=== PATIENT | female | born 1955 | race Caucasian/White ===

== ENCOUNTER 2017-04-08 14:53 | Inpatient (IN) | payer MEDICARE ==
[~2017-04-08] VITALS: Ht 168.9 cm; Wt 81.5 kg
[2017-04-08 15:58] LABS: BASOPHILS 0.3 % (0-2); EOSINOPHILS 2.3 % (0-7); HEMATOCRIT 37.6 % (36.0-48.0); HEMOGLOBIN 12.8 g/dL (12-16); IMMATURE GRANULOCYTES 0.3 % (0-5); LYMPHOCYTES 25.4 % (15-50); MCH 29.2 pg (26.0-34.0); MCV 85.8 fL (80.0-100.0); MEAN PLATELET VOLUME 8.9 fL (7.4-10.4); MONOCYTES 11.9 % (2-11); NEUTROPHILS 59.8 % (40-80); RBC 4.38 10x6/uL (4.00-5.40); RDW 14.2 % (11.5-14.5); WBC 10.6 10x3/uL (4.8-10.8)
[2017-04-08 16:00] LABS: PLATELET COUNT 288 10x3/uL (130-400)
[2017-04-08 16:19] LABS: ALBUMIN 2.8 g/dL (3.4-5.0); ANION GAP 10.1 mmol/L (8-16); BILIRUBIN - TOTAL 0.34 mg/dL (0.2-1.3); CALCIUM 9.6 mg/dL (8.5-10.1); CARBON DIOXIDE 33.6 mmol/L (21.0-32.0); CREATININE - SERUM 1.2 mg/dL (0.6-1.3); POTASSIUM - SERUM 3.7 mmol/L (3.5-5.1); PROTEIN - SERUM 7.7 g/dL (6.4-8.2)
[2017-04-08 18:47] LABS: APTT 31.7 SECONDS (22.8-39.4); INR 0.92 (0.85-1.17); PROTIME 12.2 SECONDS (11.6-15.0)
[2017-04-08 19:00] VITALS: BP 163/87
--- NOTE | 2017-04-08 20:36 | NUR ---
RECEIVEDOM ER, IV-R.HAND, VITALS ARE STABLE, BED IS LOW, SRX-2 CALL LIGHT IN REACH. PT IS A&O, PT IS AMBULATE, DENIES ANY NEED, WILL CONTINUE TO MONITOR
[2017-04-08] MEDS ORDERED: KLONOPIN0.5 MG PO (20:39)
[2017-04-08] MEDS ORDERED: METOPROLOL TART50 MG PO (20:40)
[2017-04-08] MEDS ORDERED: LEVOTHYROXINE50 MCG PO (20:40)
[2017-04-08] MEDS ORDERED: HCTZ25 MG PO (20:40)
[2017-04-08] MEDS ORDERED: PEPCID20 MG PO (20:41)
[2017-04-08] MEDS ORDERED: KEFLEX500 MG PO (20:42)
[2017-04-08] MEDS ORDERED: ZYPREXA5 MG PO (20:43)
[2017-04-08] MEDS ORDERED: CYMBALTA60 MG PO (20:44)
[2017-04-08] MEDS ORDERED: ULTRAM50 MG PO (20:45)
[2017-04-08] MEDS ORDERED: DEPAKOTE500 MG PO (20:46)
--- NOTE | 2017-04-08 23:26 | NUR ---
PAGED DAT TO ASK ABOUT ZOSYN. PT ALERGY TO ZOSYN, ORDER CHANGED TO LEVOFLOXACIN
[2017-04-09] VITALS: BP 126/78
[2017-04-09 01:15] VITALS: BMI 26.7
[2017-04-09 04:00] VITALS: BP 121/56
[2017-04-09 06:15] LABS: HEMATOCRIT 34.3 % (36.0-48.0); HEMOGLOBIN 11.9 g/dL (12-16); LYMPHOCYTES 29.1 % (15-50); MCHC 34.7 g/dL (31.0-37.0); MEAN PLATELET VOLUME 8.4 fL (7.4-10.4); NEUTROPHILS 54.4 % (40-80); PLATELET COUNT 304 10x3/uL (130-400); RBC 4.11 10x6/uL (4.00-5.40); RDW 13.3 % (11.5-14.5); WBC 9.1 10x3/uL (4.8-10.8)
[2017-04-09 06:16] LABS: MCV 83.5 fL (80.0-100.0)
[2017-04-09 06:21] LABS: ANION GAP 9.2 mmol/L (8-16); C-REACTIVE PROTEIN 6.3 mg/dL (0.0-0.9); CALCIUM 8.6 mg/dL (8.5-10.1); CARBON DIOXIDE 30.8 mmol/L (21.0-32.0); CREATININE - SERUM 1.3 mg/dL (0.6-1.3)
--- NOTE | 2017-04-09 07:50 | NUR ---
AM ROUNDING- RECEIVED REPORT FROM OCCUPATIONAL HEALTH COORDINATOR NURSE BRAYAN. PT IS CURRENTLY LAYING IN BED ON RIGHT SIDE WITH EYES CLOSED RESTING. ON ROOM AIR. NO MONITOR. IV SEEN TO RIGHT HAND WITH NS RUNNING AT 75CC. NO NEED AT CURRENT TIME. WILL CONTINUE TO MONITOR AND CONTINUE WITH PLAN OF CARE.
[2017-04-09 08:52] VITALS: BP 143/69
--- NOTE | 2017-04-09 09:33 | NUR ---
AAMIR MARCUM (WOUND CARE NURSE) IN ROOM N0W GETTING WOUND CULTURE FOR RIGHT BIG TOE ABCESS.
--- NOTE | 2017-04-09 09:43 | NUR ---
Wound Care: Cultures obtained from wound on right great toe. Toe is edematous, red and tender to touch. There is moderate seropurulent drainage noted. Wound measures 0.3cm x 0.3cm x 0.5cm. Wound care will monitor.
[2017-04-09 13:11] VITALS: BP 129/74
--- NOTE | 2017-04-09 14:03 | NUR ---
D/C INSTRUCTIONS EXPLAINED TO PT. D/C PAPERWORK SIGNED BY PT AND PLACED IN CHART. IV TO LEFT FOREARM REMOVED WITH CATH TIP INTACT. COVERED SITE WITH 2X2 GAUZE PADS AND SECURED WITH TEGADERM. TOLERATED WELL. PT INSTRUCTED TO LET STAFF KNOW WHEN DAD GETS HERE TO GET PT SO STAFF MEMBER CAN TAKE PT OUT IN WHEELCHAIR. PT AGREES. WILL CONTINUE TO MONITOR.
[2017-04-09 17:59] VITALS: BP 137/78
--- NOTE | 2017-04-09 17:59 | NUR ---
PT IS CURRENTLY LAYING IN BED ON BACK WITH EYES OPEN RESTING. PT IS REQUESTING HER DRESSING ON RIGHT FOOT (BIG TOE) TO BE REDONE BECAUSE "THE DOCTOR TOOK IT OFF". WILL ATTEMPT TO REDO DRESSING BEFORE SHIFT CHANGE AND CONTINUE TO MONITOR.
[2017-04-10] VITALS: BP 113/69
--- NOTE | 2017-04-10 01:50 | NUR ---
ASSESSMENT COMPLETE, IV-LFA-NS@ 75, PT IS ABLIB, R. GREAT TOE-RED AND SWOLLEN,DRAINING, DRESSING INTACT. BED IS LOW, SRX2, WILL CONTINUE PLAN OF CARE
--- NOTE | 2017-04-10 02:14 | NUR ---
IV RESTARTED, 20 G, DRESSING INTACT.
[2017-04-10 04:00] VITALS: BP 126/77
--- NOTE | 2017-04-10 06:08 | NUR ---
DRESSING CHANGE TO PT'S RT TOE, CLEAN WOUND WITH WOUND CLEANCER, COVER WITH KLEX, SECURE WITH TAPE.
--- NOTE | 2017-04-10 07:35 | NUR ---
PT IN BED RESTING WITH EYES CLOSED. NO DISTRESS NOTED. IV TO RIGHT FA @ KVO. DRESSING INTO TO RIGHT GREAT TOE. WILL CONT TO MONITOR.
--- NOTE | 2017-04-10 08:31 | NUR ---
RESTS IN BED EATING BRK. IV PATENT. CALL LIGHT IN REACH. WILL MONITOR NEEDS.
[2017-04-10 08:54] VITALS: BP 122/63
[2017-04-10 12:48] VITALS: BP 144/84
--- NOTE | 2017-04-10 18:19 | NUR ---
PT UP IN BED WATCHING TV. NO C/O VOICED AT THIS TIME. WILL MONITOR.
[2017-04-10 19:00] VITALS: BP 148/72
--- NOTE | 2017-04-10 19:30 | NUR ---
RECEIVED REPORT, PT VISITING WITH , IV-RFA-NS @75, R. GREAT TOE RED, BED IS LOW, SRX2, CALL LIGHT IN REACH, WILL CONTINUE PLAN OF CARE
[2017-04-11] VITALS (7 sets, daily range): BP systolic 115–148; BP diastolic 54–76
--- NOTE | 2017-04-11 01:34 | NUR ---
ASSESSMENT COMPLETE, SEE FLOWSHEET, PT SLEEPING, BED IS LOW, SRX2, CALL LIGHT IN REACH, WILL CONTINUE PLAN OF CARE
[2017-04-11 07:12] LABS: BASOPHILS 0.4 % (0-2); HEMATOCRIT 34.7 % (36.0-48.0); HEMOGLOBIN 11.7 g/dL (12-16); IMMATURE GRANULOCYTES 0.3 % (0-5); LYMPHOCYTES 29.6 % (15-50); MCH 28.7 pg (26.0-34.0); MCHC 33.7 g/dL (31.0-37.0); MCV 85.3 fL (80.0-100.0); MEAN PLATELET VOLUME 8.7 fL (7.4-10.4); MONOCYTES 13.4 % (2-11); NEUTROPHILS 51.3 % (40-80); PLATELET COUNT 271 10x3/uL (130-400); RBC 4.07 10x6/uL (4.00-5.40); WBC 9.8 10x3/uL (4.8-10.8)
--- NOTE | 2017-04-11 07:25 | NUR ---
PT IN BED RESTING WITH EYES CLOSED. IV TO RIGHT FA INTACT NS@ 75. NO DISTRESS NOTED. WILL CONT TO MONITOR.
[2017-04-11 07:29] LABS: ANION GAP 10.2 mmol/L (8-16); C-REACTIVE PROTEIN 2.7 mg/dL (0.0-0.9); CALCIUM 8.9 mg/dL (8.5-10.1); CREATININE - SERUM 1.1 mg/dL (0.6-1.3); POTASSIUM - SERUM 4.2 mmol/L (3.5-5.1)
--- NOTE | 2017-04-11 09:35 | NUR ---
IV PATENT. CALL LIGHT IN REACH. AVE NEEDS AT THIS TIME. WILL MONITOR.
--- NOTE | 2017-04-11 17:17 | NUR ---
PT SITTING UP IN BED EATING AND WATCHING TV. DENIES PAIN OR DISCOMFORT. WILL MONIOTR.
--- NOTE | 2017-04-11 19:44 | NUR ---
RESUMED CARE OF PT, LYING IN BED RESPIRATIONS EVEN AND UNLABORED ON ROOM AIR. RIGHT FOREARM INFUSING NS @ 75. NO NEEDS VOICED AT THIS TIME. CALL LIGHT IN REACH. SEE NURSE ASSESSMENT.
--- NOTE | 2017-04-12 02:47 | NUR ---
LYING IN BED WITH EYES CLOSED, CALL LIGHT IN REACH.
[2017-04-12 04:24] VITALS: BP 118/68
--- NOTE | 2017-04-12 06:18 | NUR ---
NO CHANGES FROM PREVIOUS ASSESSMENT, CALL LIGHT IN REACH. WILL CONTINUE TO MONITOR.
[2017-04-12 06:20] LABS: BASOPHILS 0.3 % (0-2); EOSINOPHILS 4.6 % (0-7); HEMATOCRIT 34.7 % (36.0-48.0); HEMOGLOBIN 11.8 g/dL (12-16); IMMATURE GRANULOCYTES 0.4 % (0-5); LYMPHOCYTES 30.7 % (15-50); MCV 85.3 fL (80.0-100.0); MEAN PLATELET VOLUME 8.8 fL (7.4-10.4); MONOCYTES 13.5 % (2-11); NEUTROPHILS 50.5 % (40-80); PLATELET COUNT 277 10x3/uL (130-400); RBC 4.07 10x6/uL (4.00-5.40); RDW 13.9 % (11.5-14.5); WBC 9.5 10x3/uL (4.8-10.8)
[2017-04-12 06:43] LABS: ANION GAP 11.5 mmol/L (8-16); CALCIUM 8.8 mg/dL (8.5-10.1); CARBON DIOXIDE 28.5 mmol/L (21.0-32.0); CREATININE - SERUM 1.1 mg/dL (0.6-1.3)
--- NOTE | 2017-04-12 07:37 | NUR ---
ASSESSMENT COMPLETED. ALERT, ORIENTED. RIGHT FA IV WITH NS AT 75. RIGHT BIG TOE RED AND SWOLLEN.SORE ON PAD OF TOE. DENIES ANY NEEDS. CALL LIGHT IN REACH WITH SR UP. WILL MONITOR
[2017-04-12 08:09] VITALS: BP 126/75
--- NOTE | 2017-04-12 08:40 | NUR ---
PT PLACED ON TEMPORARY CONTACT ISOLATION GROWING STAFF ISABEL IN WOUND
--- NOTE | 2017-04-12 11:01 | NUR ---
PT IS ON CONTACT ISOLATION
[2017-04-12 11:38] VITALS: BP 135/71
--- NOTE | 2017-04-12 12:46 | NUR ---
HOB UP FOR DIET. DENIES ANY NEEDS. CALL LIGHT IN REACH WITH SR UP
[2017-04-12 15:55] VITALS: BP 113/56
--- NOTE | 2017-04-12 17:54 | NUR ---
LYING QUIETLY WITH EYS CLOSED. IV INFUSING WELL. NO DISTRESS NOTED
[2017-04-12 19:46] VITALS: BP 125/67
--- NOTE | 2017-04-12 19:48 | NUR ---
RESUMED CARE OF PT, LYING IN BED RESPIRATIONS EVEN AND UNLABORED ON ROOM AIR. RIGHT FOREARM INFUSING NS @ 75. NO NEEDS VOICED AT THIS TIME. CALL LIGHT IN REACH. WILL CONTINUE TO MONITOR. SEE NURSE ASSESSMENT.
--- NOTE | 2017-04-12 22:12 | NUR ---
NIGHT MEDS GIVEN, CALL LIGHT IN REACH. WILL CONTINUE TO MONITOR.
[2017-04-12 23:38] VITALS: BP 118/58
--- NOTE | 2017-04-13 01:45 | NUR ---
LYING IN BED WITH EYES CLOSED, CALL LIGHT IN REACH. WILL CONTINUE TO MONITOR.
[2017-04-13 03:48] VITALS: BP 142/71
[2017-04-13 05:26] LABS: BASOPHILS 0.3 % (0-2); EOSINOPHILS 5.2 % (0-7); HEMATOCRIT 33.7 % (36.0-48.0); HEMOGLOBIN 11.2 g/dL (12-16); IMMATURE GRANULOCYTES 0.3 % (0-5); LYMPHOCYTES 31.6 % (15-50); MCH 28.4 pg (26.0-34.0); MCHC 33.2 g/dL (31.0-37.0); MCV 85.5 fL (80.0-100.0); MEAN PLATELET VOLUME 8.7 fL (7.4-10.4); MONOCYTES 15.3 % (2-11); NEUTROPHILS 47.3 % (40-80); PLATELET COUNT 248 10x3/uL (130-400); RBC 3.94 10x6/uL (4.00-5.40); WBC 9.4 10x3/uL (4.8-10.8)
[2017-04-13 05:43] LABS: ANION GAP 10.2 mmol/L (8-16); CARBON DIOXIDE 30.1 mmol/L (21.0-32.0); CREATININE - SERUM 1.1 mg/dL (0.6-1.3); POTASSIUM - SERUM 4.3 mmol/L (3.5-5.1)
--- NOTE | 2017-04-13 06:11 | NUR ---
NO CHANGES FROM PREVIOUS ASSESSMENT. CALL LIGHT IN REACH.
--- NOTE | 2017-04-13 07:37 | NUR ---
AM ROUNDING DONE WITH PATIENT REQUESTING CUP OF COFFEE, 3 CREAMERS AND 1 SWEET N LOW. GIVEN. IV OF NS INFUSING TO RIGHT FA AT 75 CC/HR. ON ROOM AIR. RIGHT GREAT TOE SEEN WITH SLIGHT REDNESS AND SMALL DRY HOLE TO UNDERSIDE OF TOE, NO DRAINAGE. PATIENT REPORTS THAT THIS IS BETTER THAN IT HAS BEEN. SLIGHT REDNESS SEEN ALSO TO LEFT GREAT TOE. PATIENT IS UP AD [place], WILL CPOC.
[2017-04-13 07:42] VITALS: BP 125/59
--- NOTE | 2017-04-13 10:56 | NUR ---
Wound Care reassessment: Right great toe wound has improved. The edema has decreased as has the redness. The depth is still 0.5cm and the periwound skin will soon start to peel. No odor and little to no drainage at this time. I continued with Maxorb AG to the wound bed and protected with 4x4. Wound care will continue to monitor.
[2017-04-13 12:05] VITALS: BP 142/67
[2017-04-13 15:40] VITALS: BP 134/65
--- NOTE | 2017-04-13 16:02 | NUR ---
PERMITS ARE SIGNED FOR I & D RIGHT GREAT TOE FOR TOMORROW PER DR TIRADO. PATIENT IS INSTRUCTED TO NPO PAST MIDNIGHT.
--- NOTE | 2017-04-13 17:21 | NUR ---
PLACED IN CONTACT ISOLATION PER DR RIVERO.
--- NOTE | 2017-04-13 19:50 | NUR ---
RECEIVED REPORT, WATCHING TV, DENIES ANY NEEDS, IV-RFA-NS@ 75, BED IS LOW, SRX2, CALL LIGHT IN REACH, WILL CONTINUE PLAN OF CARE
[2017-04-13 20:12] VITALS: BP 123/57
[2017-04-13 23:40] VITALS: BP 125/62
--- NOTE | 2017-04-14 00:50 | NUR ---
ASSESSMENT COMPLETE, SEE FLOWSHEET, PT IS NPO FOR I&D OF R. GREAT TOE IN AM, BED IS LOW, SRX2, CALL LIGHT IN REACH, WILL CONTINUE PLAN OF CARE
[2017-04-14 03:31] VITALS: BP 123/61
[2017-04-14 06:15] LABS: BASOPHILS 0.4 % (0-2); EOSINOPHILS 4.6 % (0-7); HEMATOCRIT 34.3 % (36.0-48.0); HEMOGLOBIN 11.5 g/dL (12-16); IMMATURE GRANULOCYTES 0.3 % (0-5); LYMPHOCYTES 32.7 % (15-50); MCH 28.7 pg (26.0-34.0); MCHC 33.5 g/dL (31.0-37.0); MCV 85.5 fL (80.0-100.0); MONOCYTES 12.5 % (2-11); NEUTROPHILS 49.5 % (40-80); PLATELET COUNT 271 10x3/uL (130-400); RBC 4.01 10x6/uL (4.00-5.40); RDW 14.1 % (11.5-14.5); WBC 9.4 10x3/uL (4.8-10.8)
[2017-04-14 06:32] LABS: ANION GAP 11.8 mmol/L (8-16); CALCIUM 8.8 mg/dL (8.5-10.1); CARBON DIOXIDE 26.2 mmol/L (21.0-32.0); CREATININE - SERUM 1.1 mg/dL (0.6-1.3)
--- NOTE | 2017-04-14 07:23 | NUR ---
AM ROUNDS- PT IN THE SHOWER AT THIS TIME. WILL CONTINUE TO MONITOR.
--- NOTE | 2017-04-14 07:57 | NUR ---
CALLED SURGERY TO SEE WHAT TIME PT IS GOING FOR I&D TODAY. SPOKE WITH ARMEN, HE STATED THAT PT IS NOT ON THE SCHEDULE AND IT'S THE FIRST TIME HE HEARD ABOUT PT HAVING PROCEDURE DONE TODAY. HE WILL FIND OUT WHEN SHE IS GOING.
[2017-04-14 08:31] VITALS: BP 133/62
--- NOTE | 2017-04-14 09:00 | NUR ---
MORNING MEDICATIONS ON HOLD SINCE PT IS NPO AT THIS TIME. WILL ADMINSTERED MEDS WHEN SHE IS BACK FROM PROCEDURE.
--- NOTE | 2017-04-14 12:04 | NUR ---
PRE- OP MEDS GIVEN AT THIS TIME, NAD NOTED, WILL CONTINUE TO MONITOR.
[2017-04-14 12:29] VITALS: BP 123/75
--- NOTE | 2017-04-14 12:46 | NUR ---
PT TRANSFERED TO OR FOR PROCEDURED, NAD NOTED.
--- NOTE | 2017-04-14 14:09 | NUR ---
Patient Name: LUCIA HUERTA Admission Status: ER Accout number: [id number] Admission Date: 04-08-2017 : 1955 Admission Diagnosis:CELLULITIS OF RIGHT TOE Attending: AKBAR Current LOS: 6 Anticipated DC Date: Planned Disposition: Primary Insurance: MEDICARE A & B Discharge Planning Comments: CM MET WITH PATIENTS SPOUSE, KRZYSZTOF HUERTA, SECONDARY TO PATIENT STILL BEING IN SURGERY, TO ASSESS DISCHARGE PLANNING/NEEDS. SPOUSE STATED THEY WISH TO RETURN HOME. STATED THE HOME ENVIRONMENT IS SAFE. HE STATED HE WOULD DRIVE HER HOME ([phone]) AT DISCHARGE. DENIES ANY NEEDS. DISCUSSED POSSIBILITY OF NEED FOR HOME HEALTH. AT THIS TIME HE SAID THAT HE DOESN'T FEEL THEY WILL NEED IT. HE SAID "MANDA KNOWS HOW TO DRESS WOUNDS". CM WILL CONTINUE TO FOLLOW AND ASSIST NEEDED WITH DISCHARGE PLANNING/NEEDS. Clinical Information Systems Director: Latia Sun Is the patient Alert and Oriented? Yes * How many steps to enter\\exit or inside your home? 0 * PCP DR MICHAEL ROMAN * Pharmacy [facility] IN [place], [place] * Preadmission Environment Home with Family * ADLs Independent * Equipment Rolling Walker * List name and contact numbers for known caregivers / representatives who currently or will assist patient after discharge: KRZYSZTOF HUERTA, SPOUSE, * Community resources currently utilized None * Additional services required to return to the preadmission environment? No * Can the patient safely return to the preadmission environment? Yes * Has this patient been hospitalized within the prior 30 days at any hospital? No
--- NOTE | 2017-04-14 14:15 | NUR ---
PT TRANSFERED BACK TO ROOM 2137, NAD NOTED, PT AWAKE WITH NO C/O PAIN. WANTS LUNCH, HOOKED UP TO VITAL MACHINE, VITAL SIGNS STABLE. MEDS GIVEN EXCEPT BP MEDS SINCE BP IS ON THE LOWER SIDE. APPAREL DESIGNER AT BEDSIDE TO DRAW BLOOD. PT DENIES ANY OTHER NEEDS AT THIS TIME. CALL LIGHT IN REACH, NAD NOTED, WILL CONTINUE TO MONITOR.
[2017-04-14 14:16] VITALS: BP 112/62
[2017-04-14 15:45] VITALS: BP 112/62
--- NOTE | 2017-04-14 19:29 | NUR ---
RECEIVED REPORT, PT DENIES ANY NEEDS, DRESSING TO R. FOOT, IV-RFA-NS@ 75, ISO-POSSIBLE MRSA, BED IS LOW, SRX2, CALL LIGHT IN REACH, WILL CONTINUE PLAN OF CARE
[2017-04-14 20:00] VITALS: BP 130/65
[2017-04-15] VITALS: BP 117/58
--- NOTE | 2017-04-15 01:41 | NUR ---
ASSESSMENT COMPLETE, SEE FLOW SHEET, PT SLEEPING, BED IS LOW, SRX2, WILL CONTINUE PLAN OF CARE
--- NOTE | 2017-04-15 03:38 | NUR ---
ADJUNCT COMMUNICATIONS FACULTY MEMBER AT BEDSIDE TO OBTAIN VITALS, WILL CONTINUE WITH PLAN OF CARE.
[2017-04-15 04:00] VITALS: BP 126/63
[2017-04-15 05:45] LABS: BASOPHILS 0.3 % (0-2); EOSINOPHILS 3.8 % (0-7); HEMATOCRIT 33.5 % (36.0-48.0); HEMOGLOBIN 11.1 g/dL (12-16); IMMATURE GRANULOCYTES 0.3 % (0-5); LYMPHOCYTES 33.5 % (15-50); MCH 28.7 pg (26.0-34.0); MCHC 33.1 g/dL (31.0-37.0); MCV 86.6 fL (80.0-100.0); MEAN PLATELET VOLUME 8.9 fL (7.4-10.4); MONOCYTES 14.3 % (2-11); NEUTROPHILS 47.8 % (40-80); PLATELET COUNT 264 10x3/uL (130-400); RBC 3.87 10x6/uL (4.00-5.40); RDW 14.4 % (11.5-14.5); WBC 9.4 10x3/uL (4.8-10.8)
[2017-04-15 06:10] LABS: ANION GAP 9.4 mmol/L (8-16); C-REACTIVE PROTEIN 2.6 mg/dL (0.0-0.9); CALCIUM 8.1 mg/dL (8.5-10.1); CARBON DIOXIDE 29.9 mmol/L (21.0-32.0); CREATININE - SERUM 1.3 mg/dL (0.6-1.3); POTASSIUM - SERUM 4.3 mmol/L (3.5-5.1)
--- NOTE | 2017-04-15 06:33 | OP ---
PATIENT NAME: LUCIA HUERTA MEDICAL RECORD: [id number] :[birth year] LOCATION:D.M2 D.2137 ADMISSION DATE:04/08/17 SURGEON: KRZYSZTOF TIRADO MD DATE OF OPERATION: 04/14/2017 Orthopedic Surgery Operative Note PREOPERATIVE DIAGNOSIS: Infected great toe on the right. POSTOPERATIVE DIAGNOSIS: Infected great toe on the right, possibly gout. PROCEDURES: Excisional debridement to include skin, subcutaneous tissue, portions of fat, fascia, muscle and bone, less than 20 cm, cultures taken ____. SURGEON: Krzysztof Tirado MD ANESTHESIA: General. INTRAOPERATIVE COMPLICATIONS: None. SUMMARY OF PATHOLOGIC FINDINGS: The material expressed from both the dorsal and the volar aspect, they were more in line with gouty crystals rather than purulence; however, the patient does have a coag-negative staph growing at this point, ____ only. OPERATIVE SUMMARY IN DETAIL: After obtaining the appropriate orthopedic surgery consent, as well as anesthetic consultation, evaluation and clearance, the patient was brought to the operating room and placed on the operating table in supine position. After general laryngeal mask was administered, tourniquet was placed about the proximal aspect of the right lower extremity. Note, it was not used during this case. The bottom ulcer was explored first with an incision. All tissue about it was excised sharply using a scalpel. The depths of which were probed and white appearing fluid in patient was found, first this was cultured ____. This was irrigated, small incision was made on the dorsal, medial aspect of the great toe and again to immediately fourth from this came white crystalline material. Curettage and rongeur was utilized to completely debride down to the bone, which had erosive elements to it. This was then followed by cultures taken deeply at this side as well. Both wounds were then again irrigated and dressed. The patient was awakened, taken to recovery room in stable condition. All final needle and sponge counts were correct. TRANSINT:[id number] Voice Confirmation ID: [id number] DOCUMENT ID: [id number] KRZYSZTOF TIRADO MD at 0633 CC: [id number] DICTATION DATE: 04/14/17 1327 HAND PATTERN MARKER: 04/14/17 2153 ADM IN [facility] [address] [place] [address]
--- NOTE | 2017-04-15 07:10 | NUR ---
AM ROUNDS- PT IN BED, SLEEPING. NAD NOTED, CALL LIGHT IN REACH, WILL CONTINUE TO MONITOR.
[2017-04-15 07:19] LABS: ERYTHROCYTE SEDIMENTATION RATE 49 mm/hr (0-30)
[2017-04-15 08:00] VITALS: BP 143/73
--- NOTE | 2017-04-15 08:44 | NUR ---
ADMINISTERED MORNING MEDICATIONS, PT IN BED, DENIES ANY PAIN TO RT FOOT. CALL LIGHT IN REACH, NAD NOTED, WILL CONTINUE TO MONITOR.
--- NOTE | 2017-04-15 10:11 | NUR ---
PATIENT REQUESTED CM TO COME TO ROOM. UPON ENTRY TO ROOM, PATIENT WAS QUESTIONING ABOUT HOME HEALTH AND SAID THAT SHE WAS TOLD THERE WAS A CHANCE THAT SHE WAS GOING TO HAVE TO GO HOME WITH IV ANTIBIOTICS. STATED SHE HAD TO WAIT AND SEE WHAT CULTURES SHOWED. EXPLAINED THAT WE HAD OPTIONS IF AND WHEN THE DOCTORS MAKE THAT DECISION. SHE DOES NOT HAVE A PREFERENCE OF HOME HEALTH AGENCY AT THIS TIME, BUT WILL THINK ABOUT IT AND LET US KNOW. WILL CONTINUE TO FOLLOW.
[2017-04-15 12:00] VITALS: BP 140/70
[2017-04-15 12:59] VITALS: Ht 168.9 cm; Wt 81.5 kg
[2017-04-15 16:22] VITALS: BP 143/78
--- NOTE | 2017-04-15 19:30 | NUR ---
RECEIVED REPORT, PT JUST GOT BACK FROM WALKING IN [place], IV-RFA-NS @75, DRESSING TO R. GREAT TOE, PT DENIES ANY NEEDS AT THIS TIME, BED IS LOW, SRX2, CALL LIGHT IN REACH, WILL CONTINUE PLAN OF CARE
[2017-04-15 20:00] VITALS: BP 147/66
[2017-04-16] VITALS: BP 139/73
--- NOTE | 2017-04-16 02:02 | NUR ---
ASSESSMENT COMPLETE, SEE FLOWSHEET, PT SLEEPING, CALL LIGHT IN REACH, BED IS LOW, SRX2, WILL CONTINUE PLAN OF CARE
--- NOTE | 2017-04-16 03:46 | NUR ---
PT RESTING WELL WITHOUT C/O OR DISTRESS NOTED. NO NEEDS VOICED. CALL LIGHT WITHIN REACH. WILL MONITOR.
[2017-04-16 04:00] VITALS: BP 142/68
[2017-04-16 05:48] LABS: BASOPHILS 0.3 % (0-2); EOSINOPHILS 4.4 % (0-7); HEMATOCRIT 32.8 % (36.0-48.0); IMMATURE GRANULOCYTES 0.3 % (0-5); MCH 28.8 pg (26.0-34.0); MCHC 33.5 g/dL (31.0-37.0); MCV 85.9 fL (80.0-100.0); MEAN PLATELET VOLUME 9.1 fL (7.4-10.4); MONOCYTES 16.3 % (2-11); NEUTROPHILS 47.7 % (40-80); PLATELET COUNT 240 10x3/uL (130-400); RBC 3.82 10x6/uL (4.00-5.40); RDW 14.3 % (11.5-14.5); WBC 8.6 10x3/uL (4.8-10.8)
[2017-04-16 06:05] LABS: ANION GAP 12.1 mmol/L (8-16); CALCIUM 8.9 mg/dL (8.5-10.1); CARBON DIOXIDE 28.3 mmol/L (21.0-32.0); CREATININE - SERUM 1.2 mg/dL (0.6-1.3); POTASSIUM - SERUM 4.4 mmol/L (3.5-5.1)
--- NOTE | 2017-04-16 07:36 | NUR ---
AM ROUNDS - PT IS AWAKE IN THE BED. RECIEVING A BREATHING TREATMENT. IV TO RIGHT FA WITH NS @ 75CC/HR. BED AT LOWEST POSITION, SIDE RAILS UP X2. DSG TO RIGHT FOOT. NON SKID SOCK TO LEFT FOOT. NO FUTHER NEEDS AT THIS TIME. WILL CONTINUE TO MONITOR
[2017-04-16 08:04] VITALS: BP 136/69
[2017-04-16] MEDS ORDERED: DOXYCYCLINE HY100 M2 PO (10:58)
--- NOTE | 2017-04-16 11:57 | NUR ---
Patient Name: LUCIA HUERTA Encounter No: [id number] : 1955 Primary Insurance: MEDICARE A & B Anticipated DC Date: 04-16-2017 Planned Disposition: Home with Home Health External Planned Provider: NO PROVIDER PREFERENCE DCP follow-up note: CM RECEIVED DISCHARGE ORDER, MET WITH PT IN ROOM TO DISCUSS DISCHARGE NEEDS AND PLANNING. PT IN AGREEMENT WITH DISCHARGE TODAY, BUT WOULD LIKE TO KNOW ABOUT HER WOUND AND WHAT WOUND CARE IS NEEDED PRIOR TO LEAVING. CM DISCUSSED AVAILABILITY OF REHAB SERVICES, MEDICAL EQUIPMENT AND HOME HEALTH SERVICES. PT HAS NO CHOICE OF HOME HEALTH PROVIDER AND REPORTS WILL NEED IT ONLY IF WOUND PACKING IS NEEDED. PT DENIES FURTHER DISCHARGE NEEDS AT THIS TIME. CHOICE SIGNED FOR NO PROVIDER PREFERENCE. IMPORTANT MESSAGE FROM MEDICARE PROVIDED AND DISCUSSED. PT'S SPOUSE TO TRANSPORT HOME TODAY. IF PT REQUIRES HOME HEALTH, CM TO ARRANGE WITH NO PROVIDER PREFERENCE UPON RECEIPT OF HOME HEALTH ORDERS. Edilberto Lamas, CASE MANAGEMENT
[2017-04-16 12:00] VITALS: BP 132/57
--- NOTE | 2017-04-16 12:56 | NUR ---
PT IN IN THE BED EATING LUNCH. MALE VISITOR AT BEDSIDE. NO NEEDS AT THIS TIME. WILL CONTINUE TO MONITOR
--- NOTE | 2017-04-16 15:12 | NUR ---
WRITTEN AND VERBAL D/C INSTRUCTIONS GIVEN TO PT. IV TO RIGHT FA, D/C. CATH TIP INTACT. PT TOLERATED WELL. WILL D/C
--- NOTE | 2017-04-16 15:23 | NUR ---
PT LEFT FLOOR VIA WHEELCHAIR WITH VOLUNTEER. WILL D/C
== END 2017-04-16 15:24 | disposition home health service (06) | DRG 465 ==
LOC: D.ER 14:53 → D.M2 19:28
PROVIDERS: Emergency Medicine; Family Medicine; Orthopaedic Surgery; ADMIT Family Medicine
PROC: 0JBQ0ZZ Excision of Right Foot Subcutaneous Tissue and Fascia, Open Approach (ICD-10-PCS; principal; 2017-04-14 11:30)
DX: M86.171 Other acute osteomyelitis, right ankle and foot (principal); L03.031 Cellulitis of right toe; E11.9 Type 2 diabetes mellitus without complications; I10 Essential (primary) hypertension; E78.5 Hyperlipidemia, unspecified; J44.9 Chronic obstructive pulmonary disease, unspecified; B95.8 Unspecified staphylococcus as the cause of diseases classified elsewhere; M10.9 Gout, unspecified

== ENCOUNTER 2019-10-05 12:48 | Inpatient (IN) | payer MEDICARE ==
[~2019-10-05] VITALS: Ht 168.9 cm; Wt 89.8 kg
[~2019-10-05 12:48] MED LIST: CYMBALTA60 MG PO; DEPAKOTE500 MG PO; DOXYCYCLINE HY100 M2 PO; HCTZ25 MG PO; KEFLEX500 MG PO; KLONOPIN0.5 MG PO; LEVOTHYROXINE50 MCG PO; METOPROLOL TART50 MG PO; PEPCID20 MG PO; ULTRAM50 MG PO; ZYPREXA5 MG PO
[2019-10-05] MEDS ORDERED: BENICAR40 MG PO (12:52)
[2019-10-05] MEDS ORDERED: BAYER CHEWABLE81 MG PO (12:52)
[2019-10-05] MEDS ORDERED: LIPITOR40 MG PO (12:53)
[2019-10-05] MEDS ORDERED: GLUCOPHAGE500 MG PO (12:54)
[2019-10-05] MEDS ORDERED: PLAVIX75 MG PO (12:55)
[2019-10-05] MEDS ORDERED: BASAGLAR K100 UNIT/1 SC (12:56)
[2019-10-05 13:20] VITALS: BP 107/65
[2019-10-05 13:26] LABS: BASOPHILS 0.2 % (0-2); EOSINOPHILS 2.1 % (0-7); HEMATOCRIT 32.3 % (36.0-48.0); HEMOGLOBIN 10.3 g/dL (12-16); IMMATURE GRANULOCYTES 0.2 % (0-5); LYMPHOCYTES 21.6 % (15-50); MCH 30.1 pg (26.0-34.0); MCHC 31.9 g/dL (31.0-37.0); MCV 94.4 fL (80.0-100.0); NEUTROPHILS 60.9 % (40-80); PLATELET COUNT 226 10x3/uL (130-400); RBC 3.42 10x6/uL (4.00-5.40); RDW 14.6 % (11.5-14.5); WBC 8.4 10x3/uL (4.8-10.8)
[2019-10-05 13:35] LABS: CALC OSMOLALITY 279 mosm/kg (275-300); CALCIUM 8.2 mg/dL (8.5-10.1); CARBON DIOXIDE 26.2 mmol/L (21.0-32.0); CHLORIDE - SERUM 102 mmol/L (98-107); CREATININE - SERUM 2.5 mg/dL (0.6-1.3); GLUCOSE 95 mg/dL (74-106); POTASSIUM - SERUM 4.8 mmol/L (3.5-5.1); SODIUM 135 mmol/L (136-145); UREA NITROGEN 41 mg/dL (7-18); eGFR NON AFRICAN AMERICAN 20 mL/min (90-120)
[2019-10-05 13:36] LABS: APTT 28.6 SECONDS (22.8-39.4); INR 0.94 (0.85-1.17); PROTIME 12.1 SECONDS (11.6-15.0)
[2019-10-05 13:53] LABS: ALBUMIN 2.4 g/dL (3.4-5.0); ALKALINE PHOSPHATASE 78 U/L (46-116); ALT (SGPT) 30 U/L (10-68); CKMB 0.9 U/L (0.0-3.6); CREATINE KINASE 49 UL (21-215); MAGNESIUM - SERUM 1.8 mg/dL (1.8-2.4); PROTEIN - SERUM 6.6 g/dL (6.4-8.2); TROPONIN-I < 0.017 ng/mL (0.000-0.060)
--- NOTE | 2019-10-05 13:56 | NUR ---
PT BACK TO ED AT THIS TIME FOLLOWING ORDERED TEST.
[2019-10-05 14:00] VITALS: BP 115/76
--- NOTE | 2019-10-05 14:24 | NUR ---
URINE SAMPLE SENT TO LAB. PT LYING IN BED, RESPIRATIONS EVEN AND UNLABORED. NO SIGNS OF DISRESS. CALL LIGHT IN REACH, PT'S AT BEDSIDE. SIDE RAILS RAISED X2. WILL CONTINUE TO MONITOR.
[2019-10-05 14:33] LABS: APPEARANCE CLEAR (CLEAR); BILIRUBIN NEGATIVE (NEGATIVE); COLOR YELLOW (YELLOW); GLUCOSE NEGATIVE (NEGATIVE); KETONE NEGATIVE (NEGATIVE); NITRITE NEGATIVE (NEGATIVE); PROTEIN 1+ mg/dL (NEGATIVE); SPECIFIC GRAVITY 1.015 (1.005-1.020); UROBILINOGEN NORMAL (NORMAL)
[2019-10-05 14:37] LABS: AMORPHOUS SEDIMENT >1+ /lpf (NONE SEEN); BACTERIA MODERATE /hpf (NEGATIVE); EPITHELIAL CELLS 0-5 /hpf (0-5); RED CELLS - URINE 0-5 /hpf (0-5); WHITE CELLS - URINE 0-5 /hpf (NEGATIVE)
[2019-10-05 14:39] LABS: UDS - AMPHET NEGATIVE QUAL (NEGATIVE); UDS - BARB NEGATIVE QUAL (NEGATIVE); UDS - BENZO NEGATIVE QUAL (NEGATIVE); UDS - COCAINE NEGATIVE QUAL (NEGATIVE); UDS - OPIATE NEGATIVE QUAL (NEGATIVE); UDS - PCP NEGATIVE QUAL (NEGATIVE); UDS - THC NEGATIVE QUAL (NEGATIVE)
[2019-10-05 14:49] VITALS: BP 151/65
[2019-10-05 16:00] VITALS: BP 122/83
--- NOTE | 2019-10-05 17:57 | NUR ---
I have reviewed this patient and I concur with the Shift Assessment completed by the Licensed Practical Nurse today this shift.
[2019-10-05 17:58] VITALS: BP 155/74; BMI 31.5
[2019-10-05 18:14] LABS: % SATURATION 14 % (15-55); IRON 42 ug/dl (35-150); TOTAL IRON BIND CAPACITY 296 ug/dl (260-445); UNSAT IRON BIND CAPACITY 254 ug/dl (150-375)
[2019-10-05 20:00] VITALS: BP 131/66
[2019-10-06] VITALS: BP 124/75
--- NOTE | 2019-10-06 01:20 | NUR ---
ASSESSED AT THE BEGINNING OF THE SHIFT. PT IS ALERT AND FOLLOWS INSTRUCTIONS BUT IS A LITTLE CONFUSED AT TIMES. SHE WAS UP IN THE BEDSIDE CHAIR WATCHING TV FOR A WHILE AND WHEN HER BLOOD SUGAR CAME UP 77 SHE DID EAT FLYNN CRACKERS AND DRANK ORANGE JUICE TO RAISE IT BACK UP. AT THIS TIME SHE IS IN THE BED WITHA PAMELA MAT IN PLACE AND SLEEPING WELL.
[2019-10-06 04:00] VITALS: BP 144/63
--- NOTE | 2019-10-06 06:33 | NUR ---
IV SITE BECAME RED AND JUST A LITTLE PUFFY. IT WAS DC'D BEFORE IT BECAME A PROBLEM AND A NEW IV WAS STARTED IN THE LEFT WRIST. PT NOW HAS A BEDSIDE COMMODE AT THE BEDSIDE. SHE VOIDED IN HER DEPENDS ABOUT 6 TIMES DURING THE NIGHT AND NOW WE ARE TRYING TO SEE IF SHE CAN USE THE BEDSIDE COMMODE.
[2019-10-06 07:18] LABS: ANION GAP 13.4 mmol/L (8-16); CALCIUM 7.9 mg/dL (8.5-10.1); CARBON DIOXIDE 26.2 mmol/L (21.0-32.0); MAGNESIUM - SERUM 1.8 mg/dL (1.8-2.4); POTASSIUM - SERUM 4.6 mmol/L (3.5-5.1)
[2019-10-06 08:15] LABS: HEMOGLOBIN 10.5 g/dL (12-16); LYMPHOCYTES 22.9 % (15-50); MCH 31.1 pg (26.0-34.0); MCHC 33.9 g/dL (31.0-37.0); MEAN PLATELET VOLUME 8.8 fL (7.4-10.4); NEUTROPHILS 64.1 % (40-80); PLATELET COUNT 208 10x3/uL (130-400); RBC 3.38 10x6/uL (4.00-5.40)
[2019-10-06 08:19] LABS: WBC 6.1 10x3/uL (4.8-10.8)
[2019-10-06 08:20] LABS: MCV 91.7 fL (80.0-100.0)
[2019-10-06 08:30] VITALS: BP 155/79
--- NOTE | 2019-10-06 12:26 | MORECARE ---
CASE MANAGEMENT DISCHARGE SUMMARY PATIENT: LANA LAGUNA UNIT: [id number] ADM DATE: 10/05/19 AGE: 64 : [birth year] SEX: F ROOM/BED: D.2210 AUTHOR: DENNIS,DOC PHYSICIAN: REFERRING PHYSICIAN: MICHAEL PURCELL MD DATE OF SERVICE: 10/06/19 Discharge Plan Patient Name: LANA LAGUNA Facility: [facility]:[place] : 1955 Planned Disposition: Home Anticipated Discharge Date: Discharge Date: Expected LOS: Initial Reviewer: [email or web address] Initial Review Date: 10/06/2019 Generated: 10/06/19 1:25 pm Comments DCP- Discharge Planning Updated by [email or web address]: Rere Clarke on 10/06/19 11:[address] Patient Name: LANA LAGUNA Admission Status: ER Accout number: [id number] Admission Date: 10-05-2019 : 1955 Admission Diagnosis: Attending: MICHAEL PURCELL Current LOS: 1 Anticipated DC Date: Planned Disposition: Home Primary Insurance: MEDICARE A & B Discharge Planning Comments: CM MET WITH PATIENT TO DISCUSS DC PLANNING/NEEDS AFTER OBTAINING VERBAL CONSENT. PLANS TO DC TO HOME AND RESUME OUT PATIENT PT IN [place]. IS INTERESTED IN [facility] IF MEETS CRITERIA. DENIES NEEDS FOR EQUIPMENT, AND REFUSES HH. CM TO FOLLOW AND ASSIST NEEDED. Emergency Services Professional: Rere Clarke DCPIA - Discharge Planning Initial Assessment Updated by [id number]: Rere Clarke on 10/06/19 12:21 pm * Is the patient Alert and Oriented? Yes * PCP [facility] IN [place] * Pharmacy [facility] IN [place] * Preadmission Environment Home with Family * Other Equipment WALKER * List name and contact numbers for known caregivers / representatives who currently or will assist patient after discharge: KRZYSZTOF, SPOUSE, * Please name any agencies selected above. OUT PATIENT PT IN [place] * Additional services required to return to the preadmission environment? No * Can the patient safely return to the preadmission environment? Yes * Has this patient been hospitalized within the prior 30 days at any hospital? Yes Coverage Notice Reviewer: [id number] - Phuong Lopez Notice Issued Date-Time: 10/05/2019 17:10 Notice Type: Medicare Outpatient Observation Notice Notice Delivered To: Patient Relationship to Patient: Self Cook Sauce Name: Lana Laguna Delivery Method: HAND - Hand Delivered Bianca Days: Prior Verbal Notification: Recipient Understood Notice: Yes Recipient Signature: Yes Med Rec Note Co-signed by Attending: Coverage Notice Comment: LAMBERT delivered to and signed by patient. Original given to patient and placed on chart. Patient Name: LANA LAGUNA Page [phone] at 1226 All edits/amendments must be made on the electronic document DICTATION DATE: 10/06/19 1225 AUTO GARAGE MECHANIC: MICHAEL 10/06/19 1225 RPT#: [id number] DC DATE: STATUS: ADM IN [facility] [address] [place] [address] END OF REPORT
[2019-10-06 12:53] VITALS: BP 142/90
[2019-10-06 13:42] VITALS: Ht 168.9 cm; Wt 89.8 kg
--- NOTE | 2019-10-06 17:04 | NUR ---
I have reviewed this patient and I concur with the Shift Assessment completed by the Licensed Practical Nurse today this shift.
[2019-10-06 17:22] VITALS: BP 168/81
[2019-10-06 20:00] VITALS: BP 171/86
[2019-10-07] VITALS: BP 106/83
--- NOTE | 2019-10-07 02:08 | NUR ---
PT RESTING IN BED. EYES CLOSED. NO SIGNS OF DISTRESS. BREATHING EVEN AND UNLABORED. IV SITE RT WRIST. DRESSING CLEAN DRY AND INTACT. NO SIGNS OF INFECTION. SKIN CLEAN DRY AND INTACT. BOWEL SOUNDS HYPERACTIVE. ABD DISTENDED. LUNG SOUNDS CLEAR. NO LOWER LEG SWELLING PRESENT. WILL CONTINUE PLAN OF CARE. CALL LIGHT IN REACH BED LOWERED AND LOCKED. BED RAILS UPX2.
--- NOTE | 2019-10-07 03:56 | NUR ---
I have reviewed this patient and I concur with the Shift Assessment completed by the Licensed Practical Nurse today this shift.
[2019-10-07 04:00] VITALS: BP 135/68
--- NOTE | 2019-10-07 06:28 | NUR ---
PT REFUSING TELE MONITOR.
[2019-10-07 07:53] LABS: BASOPHILS 0.2 % (0-2); EOSINOPHILS 0.9 % (0-7); HEMATOCRIT 29.5 % (36.0-48.0); HEMOGLOBIN 9.5 g/dL (12-16); IMMATURE GRANULOCYTES 0.4 % (0-5); LYMPHOCYTES 25.7 % (15-50); MCH 30.2 pg (26.0-34.0); MCHC 32.2 g/dL (31.0-37.0); MEAN PLATELET VOLUME 8.9 fL (7.4-10.4); MONOCYTES 18.6 % (2-11); NEUTROPHILS 54.2 % (40-80); PLATELET COUNT 202 10x3/uL (130-400); RBC 3.15 10x6/uL (4.00-5.40); RDW 14.5 % (11.5-14.5); WBC 4.7 10x3/uL (4.8-10.8)
[2019-10-07 07:55] LABS: MCV 93.7 fL (80.0-100.0)
[2019-10-07 08:10] LABS: ANION GAP 11.8 mmol/L (8-16); CALCIUM 8.1 mg/dL (8.5-10.1); CARBON DIOXIDE 24.4 mmol/L (21.0-32.0); MAGNESIUM - SERUM 1.4 mg/dL (1.8-2.4); POTASSIUM - SERUM 4.2 mmol/L (3.5-5.1)
[2019-10-07 08:13] LABS: CREATININE - SERUM 1.2 mg/dL (0.6-1.3)
--- NOTE | 2019-10-07 09:20 | NUR ---
PT RESTING. RR EVEN AND UNLABORED. RECIEVED ASSISTANCE DIALING OUT TO PER REQUEST. DENIES NEEDS OR PAIN AT THIS TIME. BED IN LOWEST POSITION. CALL LIGHT WITHIN REACH. WILL CONTINUE TO MONITOR.
--- NOTE | 2019-10-07 12:09 | NUR ---
I have reviewed this patient and I concur with the Shift Assessment completed by the Licensed Practical Nurse today this shift.
[2019-10-07 14:29] VITALS: BP 170/77
--- NOTE | 2019-10-07 16:00 | NUR ---
REPORT RECIEVED ASSUMED CARE. NO COMPLAINTS OR SIGNS OF DISTRESS. IV INTACT. CALL LIGHT WITHIN REACH.
[2019-10-07 16:26] VITALS: BP 164/92
--- NOTE | 2019-10-07 18:13 | NUR ---
PATIENT IN BED WITH NO COMPLAINTS OR SIGNS OF DISTRESS. IV INTACT. CALL LIGHT WITHIN REACH.
--- NOTE | 2019-10-07 19:15 | NUR ---
BEDSIDE REPORT RECEIVED. ASSUMED CARED OF PATIENT.
--- NOTE | 2019-10-07 19:20 | NUR ---
ASSESSMENT COMPLETED. DAY SHIFT RN IN ROOM FINISHING TASKS FROM DAY. PATIENT ALERT AND ORIENTED. DENIES FURTHER NEEDS. CALL LIGHT IN REACH.
[2019-10-07 20:00] VITALS: BP 153/79
[2019-10-08] VITALS: BP 153/78
--- NOTE | 2019-10-08 00:09 | NUR ---
ASSISTED PATIENT TO [facility].
--- NOTE | 2019-10-08 02:54 | NUR ---
I have reviewed this patient and I concur with the Shift Assessment completed by the Licensed Practical Nurse today this shift.
[2019-10-08 04:00] VITALS: BP 166/85
[2019-10-08 06:07] LABS: BASOPHILS 0.2 % (0-2); EOSINOPHILS 2.5 % (0-7); HEMATOCRIT 32.2 % (36.0-48.0); HEMOGLOBIN 10.4 g/dL (12-16); IMMATURE GRANULOCYTES 0.6 % (0-5); LYMPHOCYTES 36.5 % (15-50); MCH 30.6 pg (26.0-34.0); MCHC 32.3 g/dL (31.0-37.0); MCV 94.7 fL (80.0-100.0); MEAN PLATELET VOLUME 9.2 fL (7.4-10.4); MONOCYTES 13.7 % (2-11); NEUTROPHILS 46.5 % (40-80); PLATELET COUNT 195 10x3/uL (130-400); RDW 14.5 % (11.5-14.5); WBC 5.2 10x3/uL (4.8-10.8)
[2019-10-08 06:27] LABS: ANION GAP 13.6 mmol/L (8-16); CALCIUM 8.3 mg/dL (8.5-10.1); CARBON DIOXIDE 25.9 mmol/L (21.0-32.0); CREATININE - SERUM 1.3 mg/dL (0.6-1.3); MAGNESIUM - SERUM 1.7 mg/dL (1.8-2.4); POTASSIUM - SERUM 4.5 mmol/L (3.5-5.1)
--- NOTE | 2019-10-08 07:55 | NUR ---
PT RECEIVED LAYING IN BED. COMPLAINING OF IV LEAKING. FOUND TO BE PULLED OUT UNDER DRESSING, STATES SHE MAY HAVE DONE IT WHILE GOING TO BATHROOM. MEDS GIVEN, PT IS ALERT AND ORIENTED, WANTING DOOR LEFT OPEN DUE TO CLAUSTROPHOBIA.
[2019-10-08 08:45] VITALS: BP 181/65
[2019-10-08 12:00] VITALS: BP 156/77
--- NOTE | 2019-10-08 12:50 | NUR ---
OFFERED PT FLU SHOT. STATES SHE IS ALLERGIC TO EGGS.
--- NOTE | 2019-10-08 13:00 | MORECARE ---
CASE MANAGEMENT DISCHARGE SUMMARY PATIENT: LANA LAGUNA MANDA UNIT: [id number] ADM DATE: 10/05/19 AGE: 64 : 51 SEX: F ROOM/BED: D.2210 AUTHOR: DENNIS,DOC PHYSICIAN: REFERRING PHYSICIAN: MICHAEL PURCELL MD DATE OF SERVICE: 10/08/19 Discharge Plan Patient Name: LANA LAGUNA Facility: [facility]:[place] : 1955 Planned Disposition: Home Anticipated Discharge Date: Discharge Date: Expected LOS: Initial Reviewer: [id number] Initial Review Date: 10/06/2019 Generated: 10/08/19 2:00 pm Comments DCP- Discharge Planning Updated by [email or web address]: Rere Clarke on 10/08/19 11:[address] Patient Name: LANA LAGUNA Encounter No: [id number] : 1955 Primary Insurance: MEDICARE A & B Anticipated DC Date: Planned Disposition: Home External Planned Provider: : DCP follow-up note: Patient and family in agreement with discharge plan. No changes to plan. Case management will follow and assist as needed. IMM EXPLAINED, SIGNED AND COPY GIVEN TO PATIENT. Rere Clarke DCP- Discharge Planning Updated by [email or web address]: Rere Clarke on 10/06/19 11:[address] Patient Name: LANA LAGUNA Admission Status: ER Accout number: [id number] Admission Date: 10-05-2019 : 1955 Admission Diagnosis: Attending: MICHAEL PURCELL Current LOS: 1 Anticipated DC Date: Planned Disposition: Home Primary Insurance: MEDICARE A & B Discharge Planning Comments: CM MET WITH PATIENT TO DISCUSS DC PLANNING/NEEDS AFTER OBTAINING VERBAL CONSENT. PLANS TO DC TO HOME AND RESUME OUT PATIENT PT IN [place]. IS INTERESTED IN [facility] IF MEETS CRITERIA. DENIES NEEDS FOR EQUIPMENT, AND REFUSES HH. CM TO FOLLOW AND ASSIST NEEDED. Letterpress Printing Machinist: Rere Clarke DCPIA - Discharge Planning Initial Assessment Updated by [email or web address]: Rere Clarke on 10/06/19 12:21 pm * Is the patient Alert and Oriented? Yes * PCP [facility] IN [place] * Pharmacy [facility] IN [place] * Preadmission Environment Home with Family * Other Equipment WALKER * List name and contact numbers for known caregivers / representatives who currently or will assist patient after discharge: KRZYSZTOF, SPOUSE, * Please name any agencies selected above. OUT PATIENT PT IN [place] * Additional services required to return to the preadmission environment? No * Can the patient safely return to the preadmission environment? Yes * Has this patient been hospitalized within the prior 30 days at any hospital? Yes Coverage Notice Reviewer: [id number] Emily Lopez Notice Issued Date-Time: 10/05/2019 17:10 Notice Type: Medicare Outpatient Observation Notice Notice Delivered To: Patient Relationship to Patient: Self Water Vessel Captain Name: Lana Laguna Delivery Method: HAND - Hand Delivered Bianca Days: Prior Verbal Notification: Recipient Understood Notice: Yes Recipient Signature: Yes Med Rec Note Co-signed by Attending: Coverage Notice Comment: LAMBERT delivered to and signed by patient. Original given to patient and placed on chart. Reviewer: [email or web address] Emily Clarke Notice Issued Date-Time: 10/08/2019 12:54 Notice Type: IM Discharge Notice Notice Delivered To: Patient Relationship to Patient: Self Water Vessel Captain Name: Delivery Method: HAND - Hand Delivered Bianca Days: Prior Verbal Notification: Recipient Understood Notice: Yes Recipient Signature: Yes Med Rec Note Co-signed by Attending: Coverage Notice Comment: Last DP export: 10/06/19 11:26 Patient Name: LANA LAGUNA Page [id number] at 1300 All edits/amendments must be made on the electronic document DICTATION DATE: 10/08/19 1300 SHRINKING MACHINE OPERATOR: MICHAEL 10/08/19 1300 RPT#: [id number] DC DATE: STATUS: ADM IN [facility] [address] [place] [address] END OF REPORT
--- NOTE | 2019-10-08 14:39 | NUR ---
PT'S IV REMOVED AND DISCHARGE INSTRUCTIONS REVEIWED WITH IN ROOM. WHEELCHAIR TO FRONT DOOR.
--- NOTE | 2019-10-08 17:30 | MORECARE ---
CASE MANAGEMENT DISCHARGE SUMMARY PATIENT: LANA LAGUNA MANDA UNIT: [id number] ADM DATE: 10/05/19 AGE: 64 : 51 SEX: F ROOM/BED: D.2210 AUTHOR: DENNIS,DOC PHYSICIAN: REFERRING PHYSICIAN: MICHAEL PURCELL MD DATE OF SERVICE: 10/08/19 Discharge Plan Patient Name: LANA LAGUNA Facility: [facility]:[place] : 1955 Planned Disposition: Home Anticipated Discharge Date: Discharge Date: 10/08/2019 Expected LOS: Initial Reviewer: [id number] Initial Review Date: 10/06/2019 Generated: 10/08/19 6:30 pm Comments DCP- Discharge Planning Updated by [email or web address]: Rere Clarke on 10/08/19 11:[address] Patient Name: LANA LAGUNA Encounter No: [id number] : 1955 Primary Insurance: MEDICARE A & B Anticipated DC Date: Planned Disposition: Home External Planned Provider: : DCP follow-up note: Patient and family in agreement with discharge plan. No changes to plan. Case management will follow and assist as needed. IMM EXPLAINED, SIGNED AND COPY GIVEN TO PATIENT. Rere Clarke DCP- Discharge Planning Updated by [email or web address]: Rere Clarke on 10/06/19 11:[address] Patient Name: LANA LAGUNA Admission Status: ER Accout number: [id number] Admission Date: 10-05-2019 : 1955 Admission Diagnosis: Attending: MICHAEL PURCELL Current LOS: 1 Anticipated DC Date: Planned Disposition: Home Primary Insurance: MEDICARE A & B Discharge Planning Comments: CM MET WITH PATIENT TO DISCUSS DC PLANNING/NEEDS AFTER OBTAINING VERBAL CONSENT. PLANS TO DC TO HOME AND RESUME OUT PATIENT PT IN [place]. IS INTERESTED IN [facility] IF MEETS CRITERIA. DENIES NEEDS FOR EQUIPMENT, AND REFUSES HH. CM TO FOLLOW AND ASSIST NEEDED. Boatswain'S Mate: Rere Clarke DCPIA - Discharge Planning Initial Assessment Updated by [email or web address]: Rere Clarke on 10/06/19 12:21 pm * Is the patient Alert and Oriented? Yes * PCP [facility] IN [place] * Pharmacy [facility] IN [place] * Preadmission Environment Home with Family * Other Equipment WALKER * List name and contact numbers for known caregivers / representatives who currently or will assist patient after discharge: KRZYSZTOF, SPOUSE, * Please name any agencies selected above. OUT PATIENT PT IN [place] * Additional services required to return to the preadmission environment? No * Can the patient safely return to the preadmission environment? Yes * Has this patient been hospitalized within the prior 30 days at any hospital? Yes Coverage Notice Reviewer: [email or web address] Emily Lopez Notice Issued Date-Time: 10/05/2019 17:10 Notice Type: Medicare Outpatient Observation Notice Notice Delivered To: Patient Relationship to Patient: Self Dental Laboratory Assistant Name: Lana Laguna Delivery Method: HAND - Hand Delivered Bianca Days: Prior Verbal Notification: Recipient Understood Notice: Yes Recipient Signature: Yes Med Rec Note Co-signed by Attending: Coverage Notice Comment: LAMBERT delivered to and signed by patient. Original given to patient and placed on chart. Reviewer: [email or web address] Emily Clarke Notice Issued Date-Time: 10/08/2019 12:54 Notice Type: IM Discharge Notice Notice Delivered To: Patient Relationship to Patient: Self Dental Laboratory Assistant Name: Delivery Method: HAND - Hand Delivered Bianca Days: Prior Verbal Notification: Recipient Understood Notice: Yes Recipient Signature: Yes Med Rec Note Co-signed by Attending: Coverage Notice Comment: Last DP export: 10/08/19 12:00 Patient Name: LANA LAGUNA Page [id number] at 1730 All edits/amendments must be made on the electronic document DICTATION DATE: 10/08/191728 FIRE INFORMATION OFFICER: MICHAEL 10/08/191728 RPT#: [id number] DC DATE:10/08/19 STATUS: DIS IN [place] [id number] [place] [address] END OF REPORT
== END 2019-10-08 14:41 | disposition home or self-care (01) | DRG 640 ==
LOC: OBSVTIME → D.ER 12:48 → D.OPS 12:48 → D.MS 16:20 → D.ER 16:20 → OBSVTIME 16:28 → D.ER 17:00 → D.MS 18:24
PROVIDERS: Emergency Medicine; ADMIT Family Medicine; ATTEND Family Medicine
DX: E86.0 Dehydration (principal); G93.41 Metabolic encephalopathy; N39.0 Urinary tract infection, site not specified; N17.9 Acute kidney failure, unspecified; I69.354 Hemiplegia and hemiparesis following cerebral infarction affecting left non-dominant side; I10 Essential (primary) hypertension; E11.65 Type 2 diabetes mellitus with hyperglycemia; E11.40 Type 2 diabetes mellitus with diabetic neuropathy, unspecified; E78.5 Hyperlipidemia, unspecified; D64.9 Anemia, unspecified; J44.9 Chronic obstructive pulmonary disease, unspecified